=== PATIENT | female | born 1955 | race Two or more races ===

== ENCOUNTER 2024-08-05 11:18 | Emergency (ER) | payer BC ==
[~2024-08-05] VITALS: Ht 152.4 cm; Wt 70.0 kg
[2024-08-05 11:23] VITALS: BP 124/70; PULSE 98; RESP 16; TEMP 99.1; O2SAT 98
[2024-08-05] MEDS ORDERED: KETOROLAC 30MG/ML VIAL IM ONE (12:30)
[2024-08-05 12:38] LABS: HEMATOCRIT. 44.8 % (36.0-48.0); HEMOGLOBIN. 15.1 g/dL (12.0-16.0); MEAN CORPUSCULAR HEMOGLOBIN 30.3 pg (28.0-32.0); MEAN CORPUSCULAR HGB CONC 33.7 g/dL (31.0-37.0); MEAN CORPUSCULAR VOLUME 90.1 fL (81.0-99.0); PLATELET 345 x1000/uL (130-400); RED BLOOD CELL COUNT 4.97 mill/uL (4.2-5.4); RED CELL DISTRIBUTION WIDTH 13.8 % (11.6-14.6); WHITE BLOOD COUNT 12.8 x1000/uL (4.5-11.0)
[2024-08-05 12:43] LABS: DIFFERENTIAL COMMENT 1
[2024-08-05 12:47] LABS: CHLORIDE 107 mEq/L (98-107); POTASSIUM 4.1 mEq/L (3.5-5.1); SODIUM 142 mEq/L (136-145)
[2024-08-05 12:48] LABS: CALCIUM 9.8 mg/dL (8.7-10.4); CARBON DIOXIDE 26 mEq/L (21-32)
[2024-08-05 12:53] LABS: CREATININE 0.7 mg/dL (0.6-1.0); GLUCOSE 145 mg/dL (70-105); UREA NITROGEN BLOOD 15 mg/dL (9-23)
[2024-08-05 12:58] LABS: ALANINE AMINOTRANSFERASE 23 IU/L (10-49); ALBUMIN 4.8 g/dL (3.2-4.8); ASPARTATE AMINOTRANSFERASE 29 IU/L (<34); BILIRUBIN DIRECT 0.5 mg/dL (<=3.0); BILIRUBIN TOTAL 2.2 mg/dL (0.1-1.0)
[2024-08-05 14:35] LABS: CLARITY URINE CLEAR (CLEAR); COLOR URINE DARK YELLOW (YELLOW); GLUCOSE URINE NEGATIVE (NEGATIVE); KETONES URINE 1+ (NEGATIVE); LEUKOCYTE ESTERASE URINE TRACE (NEGATIVE); NITRITE URINE NEGATIVE (NEGATIVE); OCCULT BLOOD URINE 2+ (NEGATIVE); PH URINE 5.5 (4.5-8.0); PROTEIN URINE 1+ (NEGATIVE); SPECIFIC GRAVITY URINE 1.029 (1.005-1.030); UROBILINOGEN URINE 0.2 E.U./dL (0.2-1.0)
[2024-08-05] MEDS ORDERED: ONDA-239 PO (15:18)
[2024-08-05 15:27] LABS: SQUAMOUS EPITHELIAL CELL URINE FEW /lpf (RARE/1+)
[2024-08-05 15:30] LABS: FINE GRANULAR CASTS URINE 0-5 /lpf; WBC URINE 0-2 /hpf (0-2)
[2024-08-05 15:31] LABS: BACTERIA URINE TRACE
[2024-08-05 17:11] LABS: PLATELET ESTIMATE NORMAL
== END 2024-08-05 15:37 | disposition home or self-care (01) ==
LOC: ER 11:18
DX: A08.4 Viral intestinal infection, unspecified (principal)
CPT/HCPCS: 36415; 74176; 76700; 80048; 80076; 81003; 85025; 99284